=== PATIENT | female | born 1965 | race Caucasian/White ===

== ENCOUNTER 2016-05-05 12:28 | Emergency (ER) | payer BC ==
[~2016-05-05] VITALS: Ht 162.6 cm; Wt 100.0 kg
[2016-05-05 12:46] VITALS: BP 168/99; PULSE 97; RESP 18; TEMP 98; O2SAT 99
[2016-05-05] MEDS ORDERED: METF500T PO (13:48)
[2016-05-05] MEDS ORDERED: LOVA20TA PO (13:48)
[2016-05-05] MEDS ORDERED: TRIA37.5 PO (13:48)
[2016-05-05] MEDS ORDERED: WELC625T2 PO (13:48)
[2016-05-05] MEDS ORDERED: LEVO50TA4 PO (13:48)
[2016-05-05] MEDS ORDERED: ORPHENADRINE INJ 60 MG/2 ML AMP IM ONE (14:15)
[2016-05-05] MEDS ORDERED: ACETAMINOPHEN/HYDROcodone 325 MG/5 MG TAB PO ONE (14:15)
[2016-05-05] MEDS ORDERED: KETOROLAC TROMETHAMINE 60 MG/2 ML (IM) VIAL IM ONE (14:15)
--- NOTE | 2016-05-05 14:28 | PD ---
HPI Chief Complaint: Musculoskeletal Complaint Time Seen by Provider: 14:22 Travel History International Travel<30 days: No Contact w/Intl Traveler<30days: No Traveled to known affect area: No History of Present Illness HPI 50-year-old female with PMH of chronic back pain presents to the ED for evaluation 2 day history of right-sided back pain. Pain radiates down the right lateral thigh to the knee. Patient denies numbness, tingling, weakness, limitations to range of motion, foot drop, urinary incontinence, saddle anesthesia. She states that she flew to [facility] a few days ago and suspects that lifting her suitcase may have exacerbated her chronic back pain. She's been treating at home with Flexeril and Ritchie with no improvement of symptoms. She does state that she is laid in bed all day yesterday due to the pain. She denies chronic health problems, takes a daily medications. NKDA. PFSH Past Medical History High Cholesterol: Yes Diabetes: Yes (metformin) Patient Takes Glucophage: Yes Hypertension: Yes Thyroid Disease: Yes ?: Not Past Surgical History Section: Yes Other Surgery: Yes (VARICOSE VEINS) Social History Alcohol Use: Yes Tobacco Use: No Substance Use: No Allergies-Medications (Allergen,Severity, Reaction): Coded Allergies: No Known Allergies (Unverified , 05/05/16) Reported Meds & Prescriptions Reported Meds & Active Scripts Active Reported Welchol (Colesevelam HCl) 625 Mg Tab 1,875 Mg PO BID Metformin (Metformin HCl) 500 Mg Tab 500 Mg PO BIDPC With meals Triamterene-Hydrochlorothiazide 37.5-25 Mg Tab 1 Tab PO DAILY Levothyroxine (Levothyroxine Sodium) 50 Mcg Tab 50 Mcg PO DAILY Lovastatin 20 Mg Tab 20 Mg PO DAILY Review of Systems Except as stated in HPI: all other systems reviewed are Neg Physical Exam Narrative GENERAL: Well-nourished, well-developed be slight female in no acute distress. SKIN: Warm and dry. HEAD: Normocephalic. EYES: No scleral icterus. No injection or drainage. NECK: Supple, trachea midline. No JVD or lymphadenopathy. CARDIOVASCULAR: Regular rate and rhythm without murmurs, gallops, or rubs. RESPIRATORY: Breath sounds equal bilaterally. No accessory muscle use. GASTROINTESTINAL: Abdomen soft, non-tender, nondistended. MUSCULOSKELETAL: No cyanosis, or edema. Straight leg raise positive bilaterally. Bilateral paraspinal musculature in the lumbar area, worse on the right. Bilateral lower extremities nontender, without deficit of range of motion or loss of strength. 2+ DP pulses bilaterally. Sensation intact to light touch distally. BACK: No obvious deformity. No CVA tenderness. + Midline tenderness in the lumbar area. Data Data Last Documented VS Vital Signs Date Time Temp Pulse Resp B/P Pulse Ox O2 Delivery O2 Flow Rate FiO2 05/05/16 15:10 86 16 165/96 99 05/05/16 12:46 98.0 Orders Ketorolac Inj (Toradol Inj) (05/05/16 14:15) Orphenadrine Inj (Norflex Inj) (05/05/16 14:15) Acetamin-Hydrocod 325-5 Mg ([place] 5-325 (05/05/16 14:15) MDM Medical Decision Making Medical Screen Exam Complete: Yes Emergency Medical Condition: Yes Differential Diagnosis Musculoskeletal pain versus muscle spasm versus acute on chronic back pain versus lumbago versus sciatica versus radiculopathy versus other Narrative Course 50-year-old female with PMH of chronic back pain presents to the ED for evaluation 2 day history of right-sided back pain radiating down the right lateral thigh to the knee. Patient thinks that her chronic back pain was exacerbated by flying and lifting her suitcase 2 days ago. She's been treating at home with Flexeril, Mobic and bedrest with no improvement of symptoms. Denies red flag symptoms. Vitals reviewed. Physical exam reveals a nontoxic- appearing white female in no acute distress. Straight leg raise positive bilaterally. Positive midline tenderness to palpation of the lumbar spine continuing to the right paraspinal musculature and right anterior lateral hip. 5/5 strength in bilateral extremities. Patient was administered IM Toradol, Norflex and by mouth Lortab. She is instructed to resume normal, gentle activities, continue taking low back and Flexeril, follow-up with her primary care provider. She indicated understanding of the instructions. She is stable and discharged home. Diagnosis Primary Impression: Back pain with right-sided sciatica Additional Impression: Exacerbation of chronic back pain Referrals: Primary Care Physician Patient Instructions: General Instructions, Sciatica (ED) Additional Instructions: Rest, hydrate. A mixture of rest and activity is best for back pain. Resume normal, gentle activities as tolerated. No strenuous physical activities for the next few days Continue with Mobic and Flexeril this evening every 6-8 hours as needed for pain and muscle spasm. Do not dryable taking pain medications. Applying ice or heat to areas with sore muscles may help to improve your pain. Do not apply ice/ heat for longer than 20 m/h. Gentle massage may also help to improve your pain. Follow-up with your primary care provider or neurologist upon return home. Return to the ED for any urgent or emergent medical condition. Med/Other Pt SpecificInfo: Prescription(s) given Disposition: 01 DISCHARGE HOME Condition: Stable Isa Garcia May 05, 2016 14:28
[2016-05-05 15:10] VITALS: BP 165/96
== END 2016-05-05 15:10 | disposition home or self-care (01) ==
LOC: PHED 12:28 → PHEFT 15:10
DX: M54.31 Sciatica, right side (principal); G89.29 Other chronic pain
CPT/HCPCS: 96372; 99283; J1885; J2360